=== PATIENT | female | born 1965 | race Caucasian/White ===

== ENCOUNTER 2024-03-30 12:21 | Inpatient (IN) | payer MEDICAID ==
[~2024-03-30] VITALS: Ht 162.6 cm; Wt 113.4 kg
[2024-03-30] MEDS ORDERED: ACETAMINOPHEN 1000MG/100ML 100 ML IV ONE (12:30)
[2024-03-30] MEDS: LORAZEPAM 2MG/ML INJ IV ONE (12:50)
[2024-03-30 13:07] LABS: BASOPHILS % 0.2 % (0.0-2.0); EOSINOPHILS % 0.1 % (0.0-5.0); HEMOGLOBIN. 15.3 g/dL (12.0-16.0); LYMPHOCYTES % 19.9 % (20.0-50.0); MEAN CORPUSCULAR HEMOGLOBIN 27.1 pg (28.0-32.0); MEAN CORPUSCULAR HGB CONC 32.5 g/dL (31.0-37.0); MEAN CORPUSCULAR VOLUME 83.4 fL (81.0-99.0); MONOCYTES % 0.7 % (2.0-8.0); NEUTROPHILS % 79.1 % (40.0-76.0); PLATELET 89 x1000/uL (130-400); RED BLOOD CELL COUNT 5.64 mill/uL (4.2-5.4); RED CELL DISTRIBUTION WIDTH 13.2 % (11.6-14.6); WHITE BLOOD COUNT 5.4 x1000/uL (4.5-11.0)
[2024-03-30 13:24] LABS: CHLORIDE 102 mEq/L (98-107); SODIUM 134 mEq/L (136-145)
[2024-03-30 13:25] LABS: CARBON DIOXIDE 16 mEq/L (21-32)
[2024-03-30 13:26] LABS: CALCIUM 8.8 mg/dL (8.7-10.4)
[2024-03-30 13:28] LABS: BG BASE EXCESS -5.1 mmol/L (-2.0-3.0); BG CARBOXYHEMOGLOBIN 1.2 % (0.5-1.5); BG DEOXYHEMOGLOBIN 1.7 % (0.0-5.0); BG FRACTION INSPIRED OXYGEN 32; BG HCO3 ACT 16.5 mmol/L (21.0-28.0); BG METHEMOGLOBIN 0.2 % (0.5-1.5); BG OXYGEN SATURATION 98.3 % (94.0-98.0); BG OXYHEMOGLOBIN 96.9 % (94.0-98.0); BG PCO2 23.9 mmHg (32.0-45.0); BG PH 7.458 (7.350-7.450); BG PO2 98.2 mmHg (83.0-108.0); BG TOTAL HEMOGLOBIN 15.4 g/dL (12.0-16.0); BG VENT MODE NASAL CANNULA
[2024-03-30 13:31] LABS: GLUCOSE 306 mg/dL (70-105); UREA NITROGEN BLOOD 14 mg/dL (9-23)
[2024-03-30 13:33] LABS: CREATINE KINASE 67 IU/L (34-145)
[2024-03-30] MEDS ORDERED: *TENECTEPLASE FOR AIS XX SCH (13:45)
[2024-03-30] MEDS: TENECTEPLASE 50MG/VIAL IV ONE (13:46)
[2024-03-30] MEDS: ONDANSETRON HCL 4MG/2ML INJ IV STA (13:47)
[2024-03-30] MEDS: SODIUM CHLORIDE 0.9% (SEPSIS BOLUS) IV ONE (13:47)
[2024-03-30 14:10] LABS: LACTIC ACID 7.8 mmol/L (0.4-2.0)
[2024-03-30 14:11] LABS: POTASSIUM 2.5 mEq/L (3.5-5.1)
[2024-03-30 14:12] LABS: ETHANOL BLOOD < 10 mg/dL (<10); TROPONIN I HIGH SENSITIVITY 81 ng/L (3.0-34)
[2024-03-30 14:13] LABS: INR 1.3
[2024-03-30 14:15] LABS: D-DIMER > 35.20 mg/L FEU (<0.50)
[2024-03-30] MEDS ORDERED: VANCOMYCIN 1G PREMIX 200 ML IV SCH (14:15)
[2024-03-30] MEDS: KCL 20MEQ/100ML PREMIX 100 ML IV SCH ×2 (14:20→19:45)
[2024-03-30] MEDS ORDERED: PIPERACILLIN/TAZO 3.375G/100ML 100 ML IV SCH ×2 (15:30→21:00)
[2024-03-30] MEDS: VANCOMYCIN 1.5GM PMX (XELLIA) 300 ML IV NR (15:36)
[2024-03-30] MEDS: PIPERACILLIN/TAZO 3.375G/50ML 50 ML IV NR (15:45)
[2024-03-30] MEDS ORDERED: MAGNESIUM/ALUMINUM HYDROXIDE/SIMETHICONE 30ML UDC PO PRN (16:15)
[2024-03-30] MEDS ORDERED: IPRATROPIUM/ALBUTEROL 0.5-3(2.5)MG/3ML NEB HHN PRN (16:15)
[2024-03-30] MEDS ORDERED: DEXTROSE 50% WATER 50ML SYRINGE IV PRN (16:15)
[2024-03-30] MEDS ORDERED: ACETAMINOPHEN 650MG SUPP PR PRN (16:15)
[2024-03-30] MEDS ORDERED: GUAIFENESIN 200MG/10ML SUGAR FREE UDC PO PRN (16:15)
[2024-03-30] MEDS ORDERED: DOCUSATE SODIUM 100MG CAPSULE PO PRN (16:15)
[2024-03-30] MEDS: MAGNESIUM 2 G PREMIX 50 ML IV ONE (17:37)
[2024-03-30] MEDS: MAGNESIUM 2 G PREMIX 50 ML IV NR (17:54)
[2024-03-30] MEDS: ACETAMINOPHEN 1000MG/100ML 100 ML IV NR (17:55)
[2024-03-30] MEDS: BLOOD SUGAR DIAGNOSTIC STRIP TEST SCH (18:36)
[2024-03-30] MEDS: INSULIN LISPRO 100 UNITS/ML SUBCUT SCH (18:52)
[2024-03-30] MEDS: PIPERACILLIN/TAZO 3.375G/50ML 50 ML IV SCH (22:50)
[2024-03-30] MEDS: INSULIN GLARGINE 100 UNITS/ML SUBCUT SCH (22:56)
[2024-03-30 23:40] LABS: POTASSIUM 3.1 mEq/L (3.5-5.1)
[2024-03-31 00:46] LABS: TROPONIN I HIGH SENSITIVITY 417 ng/L (3.0-34)
[2024-03-31] MEDS ORDERED: VANCOMYCIN 750MG/150ML (BAXTER) IV SCH (03:30)
[2024-03-31] MEDS: ONDANSETRON HCL 4MG/2ML INJ IV PRN (04:38)
[2024-03-31 05:51] LABS: POTASSIUM 3.1 mEq/L (3.5-5.1)
[2024-03-31 05:52] LABS: CALCIUM 8.2 mg/dL (8.7-10.4)
[2024-03-31 05:56] LABS: ALANINE AMINOTRANSFERASE 289 IU/L (10-49); ASPARTATE AMINOTRANSFERASE 526 IU/L (<34); CREATININE 1.2 mg/dL (0.6-1.0)
[2024-03-31 05:57] LABS: ALBUMIN 3.1 g/dL (3.2-4.8); BILIRUBIN DIRECT 0.6 mg/dL (<=3.0); BILIRUBIN TOTAL 1.1 mg/dL (0.1-1.0); PROTEIN TOTAL 6.3 g/dL (6.0-8.3)
[2024-03-31 05:58] LABS: HEMATOCRIT. 42.3 % (36.0-48.0); HEMOGLOBIN. 13.9 g/dL (12.0-16.0); MEAN CORPUSCULAR HEMOGLOBIN 27.5 pg (28.0-32.0); MEAN CORPUSCULAR HGB CONC 32.9 g/dL (31.0-37.0); MEAN CORPUSCULAR VOLUME 83.8 fL (81.0-99.0); MEAN PLATELET VOLUME 10.7 fl (7.4-10.4); RED BLOOD CELL COUNT 5.05 mill/uL (4.2-5.4); RED CELL DISTRIBUTION WIDTH 13.5 % (11.6-14.6); WHITE BLOOD COUNT 10.1 x1000/uL (4.5-11.0)
[2024-03-31 06:00] LABS: THYROID STIMULATING HORMONE 1.22 uIU/mL (0.55-4.78)
[2024-03-31 06:46] LABS: DIFFERENTIAL COMMENT 1
[2024-03-31 06:49] LABS: PLATELET 45 x1000/uL (130-400)
[2024-03-31 07:26] LABS: PLATELET ESTIMATE MARKEDLY DECREASED
[2024-03-31 11:56] LABS: CREATINE KINASE MB FRACTION 2.2 ng/mL (0.5-3.6)
[2024-03-31] MEDS ORDERED: POTASSIUM CHLORIDE 40 MEQ in DEXT 5% WATER 230 ML IV ONE (12:00)
[2024-03-31] MEDS: KCL 20MEQ/100ML X 2 FOR TOTAL KCL 40MEQ/200ML IV SCH (13:31)
[2024-03-31] MEDS ORDERED: VANCOMYCIN 1.25GM PMX (XELLIA) 250 ML IV SCH (15:00)
[2024-03-31 15:47] LABS: POTASSIUM 2.8 mEq/L (3.5-5.1)
[2024-03-31] MEDS ORDERED: CEFEPIME 2GM IN DEXT 5% 100ML IV SCH (16:30)
[2024-03-31] MEDS: METRONIDAZOLE 500 MG PREMIX 100 ML IV SCH (18:54)
[2024-03-31] MEDS: ACETAMINOPHEN 325MG TABLET PO PRN (18:55)
[2024-03-31] MEDS: POTASSIUM CHLORIDE 20MEQ/PACKET PO SCH (18:56)
[2024-03-31 19:31] LABS: TROPONIN I HIGH SENSITIVITY 211 ng/L (3.0-34)
[2024-03-31 19:33] LABS: HEPATITIS B SURFACE ANTIGEN NEGATIVE (Negative)
[2024-03-31 19:54] LABS: HEPATITIS A AB IGM NEGATIVE (Negative); HEPATITIS B CORE AB IGM NEGATIVE (Negative)
[2024-03-31 19:55] LABS: HEPATITIS C AB NON REACTIVE (Neg) (Negative)
[2024-03-31 20:00] VITALS: BP 140/60; PULSE 66; RESP 18; TEMP 36.3; O2SAT 98
[2024-03-31] MEDS: CEFEPIME 2GM/50ML DUPLEX 50 ML IV SCH (21:44)
[2024-03-31] MEDS: VANCOMYCIN 1.25GM PMX (XELLIA) 250 ML IV SCH (21:55)
[2024-03-31 22:23] LABS: AMMONIA < 17 uMol/L (<32)
[2024-03-31 22:27] VITALS: BP 138/63; PULSE 101; RESP 19; TEMP 36.4
[2024-04-01] VITALS (7 sets, daily range): BP systolic 138–181; BP diastolic 63–97; PULSE 83–101; RESP 18–24; TEMP 36.2–38.3; O2SAT 95–98
[2024-04-01 00:56] LABS: POTASSIUM 3.5 mEq/L (3.5-5.1)
[2024-04-01 07:59] LABS: CHLORIDE 105 mEq/L (98-107); POTASSIUM 3.1 mEq/L (3.5-5.1); SODIUM 137 mEq/L (136-145)
[2024-04-01 08:00] LABS: CALCIUM 8.1 mg/dL (8.7-10.4); CARBON DIOXIDE 23 mEq/L (21-32)
[2024-04-01 08:05] LABS: CREATININE 0.7 mg/dL (0.6-1.0); GLUCOSE 209 mg/dL (70-105); UREA NITROGEN BLOOD 18 mg/dL (9-23)
[2024-04-01 08:11] LABS: HEMATOCRIT 37.1 % (36.0-48.0); HEMOGLOBIN 12.3 g/dL (12.0-16.0); MEAN CORPUSCULAR HEMOGLOBIN 27.5 pg (28.0-32.0); MEAN CORPUSCULAR HGB CONC 33.3 g/dL (31.0-37.0); MEAN CORPUSCULAR VOLUME 82.5 fL (81.0-99.0); RED BLOOD CELL COUNT 4.49 mill/uL (4.2-5.4); RED CELL DISTRIBUTION WIDTH 13.3 % (11.6-14.6); WHITE BLOOD COUNT 6.6 x1000/uL (4.5-11.0)
[2024-04-01] MEDS: INSULIN GLARGINE 100 UNITS/ML SUBCUT SCH (08:53)
[2024-04-01] MEDS: HYDRALAZINE 20MG/ML VIAL IV PRN (09:02)
[2024-04-01 10:38] LABS: TROPONIN I HIGH SENSITIVITY 124 ng/L (3.0-34)
[2024-04-01] MEDS ORDERED: SULF1TAB47 MT (11:03)
[2024-04-01 13:02] LABS: PLATELET 49 x1000/uL (130-400)
[2024-04-01 13:14] LABS: CLARITY URINE CLEAR (CLEAR); COLOR URINE YELLOW (YELLOW); GLUCOSE URINE 3+ (NEGATIVE); KETONES URINE 1+ (NEGATIVE); LEUKOCYTE ESTERASE URINE NEGATIVE (NEGATIVE); NITRITE URINE NEGATIVE (NEGATIVE); OCCULT BLOOD URINE NEGATIVE (NEGATIVE); PH URINE 6.5 (4.5-8.0); PROTEIN URINE 1+ (NEGATIVE); SPECIFIC GRAVITY URINE 1.018 (1.005-1.030); UROBILINOGEN URINE 0.2 E.U./dL (0.2-1.0)
[2024-04-01 13:34] LABS: *AMPHETAMINES SCREEN URINE NEGATIVE (NEGATIVE); *BARBITURATES SCREEN URINE NEGATIVE (NEGATIVE); *BENZODIAZEPINES SCREEN URINE NEGATIVE (NEGATIVE); *COCAINE SCREEN URINE NEGATIVE (NEGATIVE); CANNABINOID URINE SCREEN NEGATIVE (NEGATIVE); ECSTASY MDMA SCREEN URINE NEGATIVE (NEGATIVE); METHADONE URINE SCREEN NEGATIVE (NEGATIVE); OPIATES URINE SCREEN NEGATIVE (NEGATIVE); PHENCYCLIDINE URINE SCREEN NEGATIVE (NEGATIVE)
[2024-04-01 13:48] LABS: BACTERIA URINE 1+; RBC URINE 0-2 /hpf (0-2); SQUAMOUS EPITHELIAL CELL URINE 1+ /lpf (RARE/1+); WBC URINE 0-2 /hpf (0-2); YEAST URINE NONE SEEN
[2024-04-01 15:57] LABS: POTASSIUM 3.3 mEq/L (3.5-5.1)
[2024-04-01 16:07] LABS: CREATINE KINASE 169 IU/L (34-145); LACTIC ACID 2.5 mmol/L (0.4-2.0)
[2024-04-01 16:17] LABS: TROPONIN I HIGH SENSITIVITY 103 ng/L (3.0-34)
[2024-04-01 18:32] LABS: POTASSIUM 3.8 mEq/L (3.5-5.1)
[2024-04-01 19:47] LABS: TROPONIN I HIGH SENSITIVITY 104 ng/L (3.0-34)
[2024-04-01] MEDS ORDERED: CLOPIDOGREL 75MG TABLET PO SCH (20:15)
[2024-04-01] MEDS ORDERED: ASPIRIN 81MG EC TABLET PO SCH (20:15)
[2024-04-01] MEDS: ATORVASTATIN CALCIUM 40MG TABLET PO SCH (21:42)
[2024-04-01 23:18] LABS: POTASSIUM 3.3 mEq/L (3.5-5.1)
[2024-04-02] VITALS (7 sets, daily range): BP systolic 121–166; BP diastolic 63–83; PULSE 66–80; RESP 18–20; TEMP 36.1–36.7; O2SAT 95–100
[2024-04-02 01:57] LABS: TROPONIN I HIGH SENSITIVITY 93 ng/L (3.0-34)
[2024-04-02] MEDS: CLONIDINE 0.1MG TABLET PO PRN (02:55)
[2024-04-02 08:11] LABS: CALCIUM 8.4 mg/dL (8.7-10.4); CARBON DIOXIDE 24 mEq/L (21-32); CHLORIDE 101 mEq/L (98-107); POTASSIUM 3.2 mEq/L (3.5-5.1); SODIUM 134 mEq/L (136-145)
[2024-04-02 08:13] LABS: HEMATOCRIT 36.7 % (36.0-48.0); HEMOGLOBIN 12.1 g/dL (12.0-16.0); MEAN CORPUSCULAR HEMOGLOBIN 27.3 pg (28.0-32.0); MEAN CORPUSCULAR HGB CONC 33.1 g/dL (31.0-37.0); MEAN CORPUSCULAR VOLUME 82.5 fL (81.0-99.0); PLATELET 61 x1000/uL (130-400); RED BLOOD CELL COUNT 4.45 mill/uL (4.2-5.4); RED CELL DISTRIBUTION WIDTH 13.2 % (11.6-14.6); WHITE BLOOD COUNT 7.1 x1000/uL (4.5-11.0)
[2024-04-02 08:16] LABS: CREATININE 0.6 mg/dL (0.6-1.0); GLUCOSE 190 mg/dL (70-105)
[2024-04-02 08:17] LABS: LDL CHOLESTEROL 63 mg/dL (5-100); TRIGLYCERIDE 162 mg/dL (0-150); UREA NITROGEN BLOOD 9 mg/dL (9-23)
[2024-04-02 08:18] LABS: CHOLESTEROL 105 mg/dL (<200); HDL CHOLESTEROL < 20 mg/dL (>65)
[2024-04-02 08:36] LABS: TROPONIN I HIGH SENSITIVITY 54 ng/L (3.0-34)
[2024-04-02] MEDS: VANCOMYCIN 1G PREMIX 200 ML IV SCH (10:59)
[2024-04-02] MEDS: POTASSIUM CHLORIDE 20MEQ/PACKET PO SCH (12:33)
[2024-04-02] MEDS: INSULIN LISPRO 100 UNITS/ML SUBCUT SCH (13:01)
[2024-04-02] MEDS ORDERED: INSU100V49 SQ (13:46)
[2024-04-02] MEDS ORDERED: INSU100V43 SQ (13:46)
[2024-04-02] MEDS ORDERED: POTA-205 MT (13:48)
[2024-04-02] MEDS ORDERED: METF-414 PO (13:50)
[2024-04-02] MEDS ORDERED: LEVO750T68 MT (13:51)
[2024-04-02] MEDS ORDERED: ATOR-2 MT (13:55)
[2024-04-02] MEDS ORDERED: NIFE-33 MT (13:58)
[2024-04-02 17:09] LABS: POTASSIUM 3.6 mEq/L (3.5-5.1)
[2024-04-02 17:15] LABS: ALANINE AMINOTRANSFERASE 143 IU/L (10-49); ALBUMIN 3.3 g/dL (3.2-4.8); ASPARTATE AMINOTRANSFERASE 68 IU/L (<34); BILIRUBIN DIRECT 0.3 mg/dL (<=3.0); BILIRUBIN TOTAL 0.8 mg/dL (0.1-1.0)
[2024-04-02] MEDS ORDERED: METFORMIN HCL 500MG TABLET PO SCH (18:10)
[2024-04-02] MEDS ORDERED: INSULIN GLARGINE 100 UNITS/ML SUBCUT SCH (22:00)
== END 2024-04-02 17:37 | disposition home or self-care (01) | DRG 720 ==
LOC: ER 12:21 → MICUSO 15:33 → EDBEDREQ 16:04 → EDBEDREQSVC 03-31 14:34 → 5WST 03-31 15:58 → 7WST 04-02 09:34
PROVIDERS: ADMIT Internal Medicine; ATTEND Internal Medicine
DX: A41.59 Other Gram-negative sepsis (principal); R65.21 Severe sepsis with septic shock; I21.A1 Myocardial infarction type 2; G92.8 Other toxic encephalopathy; I67.4 Hypertensive encephalopathy; R16.2 Hepatomegaly with splenomegaly, not elsewhere classified; D69.6 Thrombocytopenia, unspecified; E87.20 Acidosis, unspecified; Z20.822 Contact with and (suspected) exposure to COVID-19; E11.65 Type 2 diabetes mellitus with hyperglycemia; B96.89 Other specified bacterial agents as the cause of diseases classified elsewhere; D64.9 Anemia, unspecified; E83.42 Hypomagnesemia; E87.6 Hypokalemia; B96.1 Klebsiella pneumoniae [K. pneumoniae] as the cause of diseases classified elsewhere; I10 Essential (primary) hypertension; I16.1 Hypertensive emergency; K76.0 Fatty (change of) liver, not elsewhere classified; K59.00 Constipation, unspecified; Z79.4 Long term (current) use of insulin
CPT/HCPCS: 36415; 36600; 70496; 70498; 70551; 71045; 71275; 74174; 80048; 80061; 80076; 80305; 80320; 81003; 82140; 82375; 82550; 82553; 82805; 82962; 82977; 83036; 83605; 83735; 83880; 84132; 84145; 84443; 84484; 85025; 85027; 85379; 86705; 86709; 86850; 86900; 87077; 87186; 87340; 87426; 87804; 92523; 92610; 93005; 93970; 97110; 97162; 97166; 97535; 99291; A4565; A4663; J0360; J0692; J1815; J2060; J2405; J2543; J3101; J3370; J3475; J3480; J3490; J7030; G0480; J0131